=== PATIENT | female | born 1965 | race Asian ===

== ENCOUNTER 2016-10-15 11:52 | Emergency (ER) | payer BC ==
--- NOTE | 2016-10-15 13:15 | RAD ---
INDICATION: Intracranial injury COMPARISON: None TECHNIQUE: Noncontrast axial source images were acquired from the skull base to the vertex. FINDINGS: Ventricles/sulci: The ventricles and cisterns are normal in size and configuration for age. Brain parenchyma: There is no focal parenchymal finding, evidence of intracranial mass, or intracranial mass effect. Intracranial hemorrhage:None. Extra-axial spaces: There are no abnormal extra axial fluid collections or evidence of extra-axial mass. Calvarium: There is no calvarial fracture or other calvarial abnormality. Scalp: There is no evidence of scalp or extracalvarial soft tissue abnormality. Paranasal sinuses/mastoid: The paranasal sinuses and mastoid air cells are clear. Other: None. IMPRESSION: NEGATIVE EXAMINATION
--- NOTE | 2016-10-15 13:23 | RAD ---
INDICATION: RIGHT side numbness. Fall one week ago. COMPARISON: May 01, 2008 radiographs TECHNIQUE: Multidetector CT images foramen magnum to lung apices without contrast. Multiplanar reformation. REPORT: Negative for fracture or subluxation at any level. Negative for paravertebral hematoma. Multilevel predominant mild degenerative spondylosis and facet joint osteoarthritis. At C6-C7 there is mild disc space narrowing with dorsal spondylitic ridging / disc complex present without significant resulting central canal stenosis. Generous congenital pedicle lengths mitigating against development of acquired spinal stenosis. Minimal uncinate process spurring at C6-C7 without significant resulting osseous foraminal stenosis. IMPRESSION: Negative for traumatic cervical spine injury. Degenerative spondylosis most prominent at C6-C7 without significant interval change. Negative for resulting spinal stenosis.
[2016-10-15 14:41] LABS: Hematocrit 40 % (35-47); Hemoglobin 13.1 g/dl (12.0-16.0); Mean Corpuscular HGB Conc 33 g/dl (31-36); Mean Corpuscular Hemoglobin 29 pg (27-31); Mean Corpuscular Volume 88 fL (80-97); Mean Platelet Volume 9 um3 (7.4-10.4); Red Blood Count 4.52 10^6/ul (4.0-5.4); Red Cell Distribution Width 14 % (10.5-15)
[2016-10-15 15:12] LABS: Albumin 4.1 g/dL (3.2-5.2); BUN/Creatinine Ratio 14.3 (8-20); Calcium 9.2 mg/dL (8.6-10.3); EGFR African American 127.1 (>60); EGFR Non-African American 98.8 (>60); Globulin 3.2 g/dL (2-4); Potassium 3.8 mmol/L (3.5-5.0); Total Bilirubin 0.5 mg/dL (0.2-1.0); Total Protein 7.3 g/dL (6.4-8.9)
[2016-10-15 16:05] LABS: Urine Bilirubin Negative (Negative); Urine Glucose Negative (Negative); Urine Nitrite Negative (Negative)
[2016-10-15 18:26] VITALS: BP 142/90
[2016-10-15] MEDS ORDERED: Iohexol 350* (CONTRAST) 500 ML MDV IV ONE (18:41)
--- NOTE | 2016-10-15 19:24 | RAD ---
INDICATION: Speech and aphasia. Fall last Tuesday. COMPARISON: Noncontrast CT brain of the same date. TECHNIQUE: Multidetector CT images were obtained from the aortic arch to the vertex of the head with 80 mL Omnipaque 350 IV contrast. Arterial phase of enhancement. Multiplanar reformation including maximum intensity projection. 3-D arterial volume rendering. Stenosis estimations based on denominator of distal arterial diameter. NECK ANGIOGRAM REPORT: Normal configuration of the aortic arch branch vessels. Negative for ostial stenosis. Patent bilateral common and internal carotid arteries. Negative for atherosclerotic plaque at the carotid bifurcations. Patent bilateral vertebral arteries with both vertebral arteries contributing to the basilar artery. Negative for arterial stenosis, occlusion, or dissection. C6-C7 moderate degenerative spondylosis and facet joint osteoarthritis. Negative for resulting acquired central canal stenosis. Uncinate process spurring and facet joint osteoarthritis results in mild bilateral foraminal stenosis. NECK ANGIOGRAM IMPRESSION: Negative CT angiogram of the carotid and vertebral arteries. HEAD ANGIOGRAM REPORT: Unremarkable intracranial internal carotid arteries as well as the M1 and M2 segments of the middle cerebral arteries and A1 and A2 segments of the anterior cerebral arteries. No anterior communicating artery visualized. Unremarkable basilar artery and cerebellar artery origins. Patent bilateral posterior cerebral arteries are supplied primarily by the posterior circulation with normal variant hypoplastic posterior communicating arteries. Negative for central intracranial aneurysm or vascular malformation. Normal contrast opacification of the dural venous sinuses. HEAD ANGIOGRAM IMPRESSION: Negative CT angiogram of the central intracranial arterial vasculature. CPT II: CPT II Codes: 3100F
--- NOTE | 2016-10-15 19:46 | ED ---
Catie Cardona Matthew, scribed for Quinton Parker MD on 10/15/16 at 1346 . Neurological HPI - HPI Summary HPI Summary: A 51 y/o female presents to the ED with neurological symptom since 10/08/16. The patient fell on 10/08/16 after tripping over a rock and landing on her right side. Since the fall, she hasn't felt quite right. Today while the patient was driving she describes an altered visual field, where objects appear further away. Also while at her therapist today, the patient states that her therapist noticed she had difficulty forming thoughts at around 10:30. 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 Associated symptoms include fatigue, pressure behind the right eye, tingling around the lips, right arm numbness since the fall. She denies head trauma during the fall and slurred speech. FHx of brain aneurysm at 50 and CVA. - History of Current Complaint Chief Complaint: EDNeurologicalDeficit Stated Complaint: RT SIDE NUMBNESS/CONFUSED Time Seen by Provider: 10/15/16 13:31 Hx Obtained From: Patient Onset/Duration: Started days ago, Still Present Timing: Constant Character: Unable To Describe, Visual Changes Associated Signs and Symptoms: Positive: Visual Changes - objects appearing further away, Numbness - RT arm - Allergy/Home Medications Allergies/Adverse Reactions: Allergies Allergy/AdvReac Type Severity Reaction Status Date / Time sulfa Allergy See Comment Uncoded 10/15/16 19:26 PMH/Surg Hx/FS Hx/Imm Hx Endocrine/Hematology History: Reports: Other Endocrine/Hematological Disorders - thalassemia Denies: Hx Diabetes Infectious Disease History: No Infectious Disease History: Denies: Traveled Outside the [place] in Last 30 Days - Family History Family History: FHx of brain aneurysm at 52 and CVA - Social History Lives: With Family Alcohol Use: None Hx Substance Use: No Substance Use Type: Reports: None Review of Systems Positive: Fatigue Eyes: Other - objects appearing further away; pressure behind the right eye ENT: Negative Cardiovascular: Negative Respiratory: Negative Gastrointestinal: Negative Genitourinary: Negative Musculoskeletal: Negative Negative: Myalgia - NO head truama Skin: Negative Neurological: Other - Tingling around the lips Positive: Numbness - Right arm. Negative: Slurred Speech Psychological: Normal All Other Systems Reviewed And Are Negative: Yes Physical Exam - Summary Physical Exam Summary: VITAL SIGNS: Reviewed. GENERAL: Patient is a well developed and nourished female who is lying comfortable in the stretcher. Patient is not in any acute respiratory distress. HEAD AND FACE: No signs of trauma. No ecchymosis, hematomas or skull depressions. No sinus tenderness. EYES: PERRLA, EOMI x 2, No injected conjunctiva, no nystagmus. No photophobia. EARS: Hearing grossly intact. Ear canals and tympanic membranes are within normal limits. MOUTH: Oropharynx within normal limits. NECK: Supple, trachea is midline, no adenopathy, no JVD, no carotid bruit, no c- spine tenderness, neck with full ROM. No meningeal signs, no Kernig's or brudzinskis signs. CHEST: Symmetric, no tenderness at palpation LUNGS: Clear to auscultation bilaterally. No wheezing or crackles. CVS: Regular rate and rhythm, S1 and S2 present, no murmurs or gallops appreciated. ABDOMEN: Soft, non-tender. No signs of distention. No rebound no guarding, and no masses palpated. Bowel sounds are normal. EXTREMITIES: FROM in all major joints, no edema, no cyanosis or clubbing. NEURO: Alert and oriented x 3. No acute neurological deficits. Speech is normal and follows commands. NIH score is 0 SKIN: Dry and warm Triage Information Reviewed: Yes Vital Signs On Initial Exam: Initial Vitals Temp Pulse Resp BP Pulse Ox 98.2 F 80 16 154/83 100 10/15/16 11:54 10/15/16 11:54 10/15/16 11:54 10/15/16 11:54 10/15/16 11:54 Vital Signs Reviewed: Yes Diagnostics - Vital Signs Vital Signs Temp Pulse Resp BP Pulse Ox 10/15/16 12:53 97.5 F 74 16 138/83 100 10/15/16 11:54 98.2 F 80 16 154/83 100 - Laboratory Result Diagrams: 10/15/16 14:30 10/15/16 14:30 Lab Statement: Any lab studies that have been ordered have been reviewed, and results considered in the medical decision making process. - CT Brain CT CT Interpretation: No Acute Changes - IMPRESSION: NEGATIVE EXAMINATION CT Interpretation Completed By: Radiologist C-Spine CT CT Interpretation: No Acute Changes - IMPRESSION: Negative for traumatic cervical spine injury. Degenerative spondylosis most prominent at C6-C7 without significant interval change. Negative for resulting spinal stenosis. CT Interpretation Completed By: Radiologist Head CTA CT Interpretation: No Acute Changes - HEAD ANGIOGRAM IMPRESSION: Negative CT angiogram of the central intracranial arterial vasculature. CT Interpretation Completed By: Radiologist Course/Dx - Course Assessment/Plan: A 51 y/o female presents to the ED with neurological symptom since 10/08/16. The patient fell on 10/08/16 after tripping over a rock and landing on her right side. Since the fall, she hasn't felt quite right. Today while the patient was driving she describes an altered visual field, where objects appear further away. Also while at her therapist today, the patient states that her therapist noticed she had difficulty forming thoughts at around 10:30. 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 Associated symptoms include fatigue, pressure behind the right eye, tingling around the lips, right arm numbness since the fall. She denies head trauma during the fall and slurred speech. FHx of brain aneurysm at 50 and CVA. Blood work WNL. Urinalysis negative. Head CTA and neck CTA negative for any acute findings. Discussed my finding with Dr. García from neurology and he recommended neck and head CT angiograms. They were both negative for dissection or intracranial arterial vascular abnormalities. Therefore, the patient will be discharge home and will follow-up at Dr. Antonio office as an outpatient. She will also follow-up with her PCP. She is A&Ox3 and hemodynamically stable. I discussed all the findings and test results with the patient. Patient was instructed to return to the emergency room immediately if any of the symptoms return or worsens. Patient understands and agrees. Plan of care was discussed with the patient and patient understands and agrees with the plan of care. All questions were answered at patient satisfaction. There were no further complaints or concerns. Patient is alert and oriented x 3. Patient vital signs are stable. Patient is to follow up with primary care physician in the next 2 to 3 days. Patient understands and agrees. - Differential Dx Differential Diagnoses Neuro: Positive: Anxiety, Cerebrovascular Accident, Concussion, Contusion, Hypertension, Transient Ischemic Attack - Diagnoses Provider Diagnoses: Post concussion syndrome - Physician Notifications Discussed Care of Patient With: Dr. García (Neurologist) at 13:57 -- Notified of patient's history and consult on this patient. Discharge - Discharge Plan Condition: Stable Disposition: HOME Patient Education Materials: Post Concussion Syndrome (ED) Referrals: Suleiman Patel MD [Primary Care Provider] - Christoph García MD [Medical Doctor] - 3 Days Additional Instructions: Please follow-up with Dr. García and your primary care physician. The documentation as recorded by the Catie leggett Matthew accurately reflects the service I personally performed and the decisions made by , Quinton Parker MD.
--- NOTE | 2016-10-16 00:25 | CONS ---
NEUROLOGY CONSULTATION NOTE: DATE OF CONSULT: 10/15/16 LOCATION: She is in the emergency room, bed 19. REFERRING PHYSICIAN: Dr. Parker. PRIMARY CARE PHYSICIAN: Dr. Grijalva. CHIEF COMPLAINT: Difficulty with word finding, numbness, fall. HISTORY OF PRESENT ILLNESS: Khanh Hanna is a 51-year-old right-handed woman who was in her usual state of health just about 7 days ago when she fell over a rock that she did not see, landing on her right side. She hit the ground hard, but did not loose consciousness. She was pretty shook up and subsequently soreness of her right side. That evening she had a dull headache and perhaps some nausea and was very tired. Since then, she has not felt completely back to normal. She has noted some discomfort on the right side of her neck as well. Yesterday, she was attempting to play the piano and was not able to play up to her standards. Today in the morning, she was speaking with the therapist and was not getting her thoughts out properly and her words out properly. There was no slurring of her speech, but just difficulty expressing what she wanted to say. Around the same time, she noted some tingling or numbness in the right side of her mouth. It did not involve the tongue, but just around the side of the mouth. She became concerned and called her primary care provider. She was recommended to the emergency room. Since being here, she notes when she looks to the right things seem a little bit not quite in focus. She has not had any double vision or loss of vision. This symptom comes and goes as she has been here. She expresses concern about aneurysm. One sibling suddenly of an aneurysmal rupture and another has aneurysm that is a "ticking time bomb." Her parents lives in [facility] and was told that there was no operative intervention that would be helpful. He has not had any symptoms from it as best as I can tell from discussing it with her. She has had at least one bad headache leading to a CAT scan several years ago. She had some numbness of the right side of her face with that one as well. She says otherwise she usually does not get headaches. PAST MEDICAL HISTORY: Generally notable for good health. MEDICATIONS: She is not on any medications at home on a routine basis. ALLERGIES: She is allergic to SULFA DRUGS. FAMILY HISTORY: Notable for aneurysms in 2 siblings as described above. SOCIAL HISTORY: She lives with her fiance. She does not smoke. She teaches piano and also composes. Incidentally, she also has thalassemia and intermittently has to get heme infusions when she becomes anemic. REVIEW OF SYSTEMS: Negative for fevers or colds, double vision, slurred speech. No prior head injuries or concussions other than the episode described above. No visual symptoms with her headaches in the past or recently. No recent fevers or infections. She does have some discomfort on the right side of her neck. No problems with swallowing. She has soreness of the right arm since she fell on it. No history of cardiac disease, diabetes, hypertension, or dyslipidemia. PHYSICAL EXAM: She is thin, but not undernourished. She is well hydrated. Temperature 97.5, blood pressure is 138/83, heart rate 74 and regular, respirations 16. Oxygen saturation is 100% on room air. Neck range of motion is fairly slow with some limitation of right rotation and right lateral flexion. There is no meningismus. Lungs are clear bilaterally. Heart is in a regular rate and rhythm without murmurs. Carotid pulses are symmetrical and there are no cervical bruits. Oral mucosa is moist and atraumatic. Neurologic Exam: Pupils, fundi, and eye movements are normal. Visual hillman are full to confrontation. There is no ptosis. Facial musculature is intact and symmetric. Palate and tongue are normal and there is no dysarthria. Tongue protrudes in the midline. Facial sensation to light touch, pin, and temperature are all symmetric. Hearing is intact and neck muscle bulk is normal. Motor exam reveals normal muscle tone and strength proximally and distally in the limbs. There is some limitation in testing because of right antecubital IV. There is no pronator drift. Finger taps are normal in the hands. Rapid alternating maneuvers are normal in the hands. Heel -to-palacios maneuver is normal. Sensory exam in the limbs is intact to vibration, proprioception, light touch, and pin discrimination. Reflexes are normal, active and symmetric in upper and lower extremities, plantar responses are flexor. I did not attempt to ambulate her. She says she is steady on her feet when was up to go to the bathroom. She is alert and oriented and a good detailed historian. Memory is intact and language is fluent. She has good attention, concentration and fund of knowledge. DIAGNOSTIC STUDIES/LAB DATA: Laboratory data includes a brain CT scan interpreted as normal. I reviewed the images and I agree. Cervical spine CT also interpreted as unremarkable other than mild spondylosis at C6-7. CBC is within normal limits. Coags notable for INR of 0.84, which is lower limit of normal. Chemistry profile normal other than nonfasting glucose of 115. IMPRESSION: Possible concussion. She hit the ground hard and has been shook up since. She had difficulty coming up with words and concentrating and playing the piano over the last 48 hours. Her symptoms are not at all suggestive of an intracranial aneurysm; however, she expresses concern because of her family history. I would like to get a CT angiogram of her neck to make sure she does not have a cervical dissection. We will go ahead and get a CT angiogram of her brain to see if she has an aneurysm as well although I consider asymptomatic if one is present. We talked about asymptomatic aneurysms and I told her that with two siblings, she has about 8% chance of developing an aneurysm herself. I told her if she had an aneurysm, there would be a 2% to 4% annual risk of rupture. I can see her in my office in followup asymptomatic intracranial aneurysm but if she does not have a cervical dissection, I think she could be discharged home to recuperate from her post concussive symptoms otherwise. CC: Dr. Grijalva * [id number]/CPS #: [id number] MTDD
== END 2016-10-15 20:31 | disposition home or self-care (01) ==
LOC: ED 11:52
DX: F07.81 Postconcussional syndrome (principal); R53.83 Other fatigue; R20.0 Anesthesia of skin
CPT/HCPCS: 36415; 70450; 70496; 70498; 72125; 80053; 81003; 84484; 85025; 85610; 99282; Q9967